=== PATIENT | female | born 1985 | race Caucasian/White ===

== ENCOUNTER 2021-11-28 16:42 | Inpatient (IN) | payer MEDICAID ==
[~2021-11-28] VITALS: Ht 165.1 cm; Wt 81.6 kg
[2021-11-28] MEDS: HALOPERIDOL LACTATE 5 MG/1 ML VIAL IM ONE ×4 (16:50→18:28)
[2021-11-28] MEDS ORDERED: HALOPERIDOL LACTATE 5 MG/1 ML VIAL ONE ×2 (16:54→18:29)
[2021-11-28] MEDS ORDERED: MIDAZOLAM HCL 2 MG/2 ML VIAL ONE (16:55)
[2021-11-28 18:00] LABS: HEMATOCRIT 27.6 % (31.2-41.9); MEAN CORPUSCULAR HEMOGLOBIN 26.9 uug (24.7-32.8); MEAN CORPUSCULAR VOLUME 80.9 fL (75.5-95.3); PLATELET COUNT (AUTO) 258 K/uL (179-408)
[2021-11-28 18:11] LABS: CARBON DIOXIDE 22 mmol/L (21-32); CHLORIDE 103 mmol/L (98-107); CREATININE 1.3 mg/dL (0.6-1.3); GLUCOSE 192 mg/dL (74-106); POTASSIUM 3.4 mmol/L (3.5-5.1); UREA NITROGEN, BLOOD 16 mg/dL (7-18)
[2021-11-28 18:17] LABS: ALANINE AMINOTRANSFERASE 20 U/L (14-59); ALKALINE PHOSPHATASE 225 U/L (50-136); ASPARTATE AMINOTRANSFERASE 8 U/L (15-37); BILIRUBIN,TOTAL 0.3 mg/dL (0.2-1.0); TOTAL PROTEIN, SERUM 7.2 g/dL (6.4-8.2)
[2021-11-28 18:20] LABS: ACETAMINOPHEN < 2.0 ug/mL (10-30)
[2021-11-28 18:22] LABS: ETHANOL < 3 MG/DL (0-0)
[2021-11-28] MEDS ORDERED: MIDAZOLAM HCL 2 MG/2 ML VIAL IM ONE (18:30)
[2021-11-28] MEDS ORDERED: ASPIRIN 325 MG TABLET PO ONE (18:45)
[2021-11-28] MEDS ORDERED: ASPIRIN 81 MG TAB.CHEW ONE (19:24)
[2021-11-28] MEDS ORDERED: IV NS 1000 ML 1,000 ML IV SCH (19:30)
[2021-11-28] MEDS ORDERED: MAGNESIUM HYDROXIDE 30 ML LIQUID UDC PO PRN (19:30)
[2021-11-28] MEDS ORDERED: REMEDY ESSENTIAL ZINC PASTE 113 GM TP PRN (19:30)
[2021-11-28] MEDS ORDERED: ONDANSETRON 4 MG/2 ML VIAL IV PRN (19:30)
[2021-11-28] MEDS ORDERED: ACETAMINOPHEN 325 MG TABLET PO PRN (19:30)
[2021-11-28] MEDS ORDERED: IV NORMAL SALINE 1000 ML BAG IV ONE (19:45)
[2021-11-29 00:12] VITALS: BP 129/64
[2021-11-29 04:06] VITALS: BP 127/76
[2021-11-29 07:32] LABS: HEMATOCRIT 29.2 % (31.2-41.9); MEAN CORPUSCULAR HEMOGLOBIN 26.7 uug (24.7-32.8); MEAN CORPUSCULAR VOLUME 80.5 fL (75.5-95.3); PLATELET COUNT (AUTO) 277 K/uL (179-408)
[2021-11-29 07:53] LABS: CREATININE 0.8 mg/dL (0.6-1.3); MAGNESIUM 1.9 mg/dL (1.8-2.4); PHOSPHOROUS 2.7 mg/dL (2.5-4.9); POTASSIUM 3.7 mmol/L (3.5-5.1)
== END 2021-11-29 09:15 | disposition left against medical advice (07) | DRG 816 ==
LOC: ER 16:44 → TELE3 23:57
PROVIDERS: ADMIT Family Medicine; ATTEND Family Medicine
DX: T59.7X1A Toxic effect of carbon dioxide, accidental (unintentional), initial encounter (principal); G92.9 Unspecified toxic encephalopathy; I21.A1 Myocardial infarction type 2; E44.0 Moderate protein-calorie malnutrition; E87.1 Hypo-osmolality and hyponatremia; Y92.410 Unspecified street and highway as the place of occurrence of the external cause; Z59.00 Homelessness unspecified; D64.9 Anemia, unspecified; Z91.19 Patient's noncompliance with other medical treatment and regimen; I42.7 Cardiomyopathy due to drug and external agent
CPT/HCPCS: 36415; 70450; 71045; 83735; 84100; 84484; 85025; 93005; A4663; G0378; G0480; J1630; J2250; J7030